=== PATIENT | female | born 1975 | race Caucasian/White ===

== ENCOUNTER 2016-06-17 02:26 | Emergency (ER) | payer MEDICAID ==
[~2016-06-17] VITALS: Ht 180.3 cm; Wt 113.4 kg
[2016-06-17 02:40] VITALS: BP 127/82
[2016-06-17] MEDS ORDERED: ACETAMINOPHEN 325 MG TAB PO ONE (05:45)
== END 2016-06-17 06:01 | disposition home or self-care (01) ==
LOC: ER 02:32
DX: J32.9 Chronic sinusitis, unspecified (principal); Z88.1 Allergy status to other antibiotic agents; Z88.2 Allergy status to sulfonamides
CPT/HCPCS: 70486